=== PATIENT | female | born 1980 | race Caucasian/White ===

== ENCOUNTER 2024-01-18 03:29 | Emergency (ER) | payer OTHER, SELFPAY ==
[2024-01-18 03:36] VITALS: BP 180/114
--- NOTE | 2024-01-18 04:03 | ED.GENMED ---
History of Present Illness
General
Chief Complaint: Throat Problem
Source: patient
Exam Limitations: none
Time Seen by Provider: 01/18/24 03:35
Nursing documentation reviewed up to this point in time: agreed with
Travel History
Have you had any contact with someone who has COVID-19?: No
Do you have any symptoms of coronavirus? Fever > 100 degrees, chills, cough, shortness of breath, sore throat, loss of taste or smell, muscle aches, or headache?: No
History of Present Illness
History of Present Illness:
43-year-old female with no chronic medical issues presents to the emergency room for evaluation of sore throat. Patient reports symptoms started early this morning and they have been worsening throughout the day, tonight she feels her tonsils are
markedly swollen and so she came to the emergency room for assessment. She says she has had similar significant tonsillar swelling when she had mono in the past as a teenager. She denies any change in her voice. Denies any drooling. Denies any
trismus. She has not had a fever. She denies any cough. She does have some nasal congestion. She denies any other complaints. She admits that she is very anxious.
Review of Systems
Review of Systems
All Other Systems: ROS reviewed and negative except as documented in HPI and ROS
Constitutional: Denies fever or chills
EENT: Reports sore throat and runny nose
Respiratory: Denies cough or trouble breathing
Cardiac: Denies chest pain or palpitations
ABD/GI: Denies abdominal pain, nausea or vomiting
: Denies flank pain
Musculoskeletal: Denies neck pain or back pain
Neurological: Denies headache, weakness or numbness
Phy Exam
Physical Exam
Physical Exam:
General: Awake, alert, oriented x3; slightly anxious but no acute distress
Head: Normocephalic, atraumatic
Eyes: Conjunctiva normal, EOMI
Throat: Airway intact, handling secretions, no tongue elevation, no trismus; she has significant bilateral tonsillar enlargement�tonsils are kissing, erythema and exudate; left very slightly larger than right but uvula remains midline with no
deviation
Neck: Trachea midline, left-sided anterior cervical chain lymphadenopathy
Lungs: Breathing comfortably not in distress
Heart: Tachycardia with regular rhythm
Neuro: No gross deficits, ambulatory
Skin: no rash
Extremities: Warm and well-perfused
Scores
Heart Failure Risk
Heart Failure Risk Score: Not Applicable
Heart Score for Chest Pain Patients
STEMI patient?: Not applicable
Withdrawal Assessment of Alcohol
Withdrawal Assessment Completed?: Not applicable
Course
Orders/Labs/Results
Orders:
Orders
01/18/24 03:35
Rapid Strep Group A Urgent
[facility] Source: Throat/Pharynx
Specimen Description:
01/18/24 03:40
CT Neck With Iv Contrast Urgent
Comment:
Reason For Exam: marked tonsillar swelling, left>right
Dexamethasone Sod Phosphate [Decadron] 10 mg IV NOW STA
Ketorolac [Toradol] 15 mg IV NOW STA
01/18/24 03:42
0.9% Sodium Chloride 1000 ml [Nss] 1,000 ml IV BOLUS
01/18/24 04:14
Complete Blood Count/With Diff Urgent
Comprehensive Metabolic Panel Urgent
Influenza A+B Rapid Molecular Urgent
[facility]DRA Source: Nasal Swab
Specimen Description:
01/18/24 04:21
COVID-19 Antigen Urgent
Comment: RECOLLECT, ORIGINAL SAMPLE WAS COLLECTED WITH THE WRONG SWAB
Abnormal Lab Results
01/18/24
04:14
WBC 10.9 H 10^3/uL
(4.8-10.8)
Abs Immat Gran (auto) 0.1 H 10^3/uL
(0-0.05)
Absolute Neuts (auto) 8.9 H 10^3/uL
(1.4-6.5)
Neutrophils % 81.7 H %
(42.2-75.2)
Lymphocytes % 11.8 L %
(20.5-51.1)
01/18/24 04:14
Vital Signs
Initial and Last Documented VS:
Initial Vital Signs
Temp Pulse Resp Pulse Ox
36.7 C 143 20 97
01/18/24 03:31 01/18/24 03:31 01/18/24 03:31 01/18/24 03:31
Last Documented Vital Signs
Temp Pulse Resp BP Pulse Ox
36.7 C 143 20 180/114 97
01/18/24 03:31 01/18/24 03:31 01/18/24 03:31 01/18/24 03:36 01/18/24 03:31
MDM/Problems Addressed
Differential Diagnosis Includes:
Strep throat; viral infection including adenovirus, COVID, influenza; mononucleosis
MDM/Problems Addressed:
43-year-old female presents for evaluation of sore throat progressing throughout the day today and sensation of tonsillar swelling. Hypertensive and tachycardic in triage�she is quite anxious. Physical exam as above. She is protecting her airway.
She does have bilateral tonsillar enlargement, erythema, exudate. Midline uvula. Left tonsil was very slightly greater than right and she had left sided cervical chain adenopathy. Plan to check basic labs, viral swabs, strep swab. Will send for
a CT of the neck to rule out peritonsillar abscess. Will treat with Decadron and Toradol and provide some fluids. Reassess after the above.
Acute Exacerbation and/or Progression of Chronic Illness:
Acutely hypertensive
Acute Exacerbation and/or Progression of Chronic Illness: HTN
*Radiology
Radiology exam reviewed: radiology read reviewed
*Pulse Oximetry
Patient hypoxic: no
*Critical Care Note
Total Time (30-74mins, 75-104mins- exclusive of procedures): Not Applicable
Data Reviewed
Source: patient
ED Attending Note
-
Portions of this chart may have been created with voice recognition software.� Occasional wrong word or��sound alike� substitutions may have occurred due to the inherent limitations of voice recognition software.
Discharge Plan
Departure
Referrals:
Bette Foster MD [Family Provider] -
Interventions
Interventions:
*Risk Screen - Suicide Last Done: 01/18/24 03:31
*General Assessment Last Done: 01/18/24 03:31
*Neglect/Abuse Screening Last Done: 01/18/24 03:31
Discharge Date and Time
Print Language: CZECH
[2024-01-18] MEDS: DECADRON 10 MG IV (04:18)
[2024-01-18] MEDS: TORADOL 15 MG IV (04:18)
[2024-01-18] MEDS: NSS 1000 IV (04:19)
[2024-01-18 04:24] LABS: % Basophils 0.6 % (0-2); % Eosinophils 0.9 % (0-6); % Immature Granulocytes 0.5 % (0-0.5); % Lymphocytes 11.8 % (20.5-51.1); % Monocytes 4.5 % (1.7-9.3); % Neutrophils 81.7 % (42.2-75.2); Absolute Basophils 0.1 10^3/uL (0-0.2); Absolute Eosinophils 0.1 10^3/uL (0-0.7); Absolute Immature Granulocytes 0.1 10^3/uL (0-0.05); Absolute Lymphocytes 1.3 10^3/uL (1.2-3.4); Absolute Monocytes 0.5 10^3/uL (0.1-0.6); Absolute Neutrophils 8.9 10^3/uL (1.4-6.5); Hematocrit 38.1 % (37.0-47.0); Hemoglobin 13.2 g/dL (12.0-16.0); Mean Corp Hgb Conc. 34.6 g/dL (33.0-37.0); Mean Corpuscular Volume 83.7 fL (81.0-99.0); Mean Platelet Volume 10.3 fL (7.4-10.4); Nucleated Red Blood Cells % 0 %; Platelet Count 207 10^3/uL (130-400); Red Blood Cell Count 4.55 10^6/uL (4.20-5.40); Red Cell Dist. Width 12.5 % (11.5-14.5); White Blood Cell Count 10.9 10^3/uL (4.8-10.8)
[2024-01-18 04:39] LABS: ALT (SGPT) 24 U/L (0-35); AST (SGOT) 25 U/L (14-36); Albumin 4.3 g/dl (3.5-5.0); Alkaline Phosphatase 83 U/L (38-126); Blood Urea Nitrogen 23 mg/dl (7-17); Calcium 9.7 mg/dl (8.4-10.2); Carbon Dioxide 23 mmol/L (22-30); Chloride 107 mmol/L (98-107); Glucose 121 mg/dl (70-99); Potassium 3.9 mmol/L (3.5-5.1); Sodium 135 mmol/L (135-145); Total Bilirubin 0.7 mg/dl (0.2-1.3); Total Protein 6.8 g/dl (6.3-8.2); eGFR > 60.00
[2024-01-18 04:43] LABS: Monotest Negative (Negative)
[2024-01-18 06:09] LABS: COVID-19 Antigen Negative (Negative)
[2024-01-18] MEDS: CLEOCIN 300 MG PO (06:29)
[2024-01-18 06:46] VITALS: BP 133/88
== END 2024-01-18 06:48 | disposition home or self-care (01) ==
LOC: EMR 03:29
PROVIDERS: EMERGENCY PHYSICIAN Emergency Medicine; FAMILY PHYSICIAN Internal Medicine
DX: J02.0 Streptococcal pharyngitis (principal); R03.0 Elevated blood-pressure reading, without diagnosis of hypertension; Z11.52 Encounter for screening for COVID-19
CPT/HCPCS: 99285; 96374; 96375; 96361; 70491; 80053; 85025; 86308; 87070; 87502; 87811; 87880; Q9967

== ENCOUNTER → 2024-10-06 15:03 | Outpatient (REF) | payer OTHER, SELFPAY | LOC: WDC 15:03 | PROVIDERS: ATTENDING PHYSICIAN Nurse Practitioner | DX: Z12.31 Encounter for screening mammogram for malignant neoplasm of breast (principal) | CPT/HCPCS: 77063; 77067 ==

== ENCOUNTER → 2024-10-20 08:57 | Outpatient (REF) | payer OTHER, SELFPAY | LOC: RAD 08:57 | PROVIDERS: ATTENDING PHYSICIAN Obstetrics & Gynecology; FAMILY PHYSICIAN Internal Medicine | DX: N92.4 Excessive bleeding in the premenopausal period (principal) | CPT/HCPCS: 76830; 76856 ==

== ENCOUNTER → 2025-01-26 15:17 | Outpatient (REF) | payer OTHER, SELFPAY | LOC: RAD 15:17 | PROVIDERS: ATTENDING PHYSICIAN Obstetrics & Gynecology; FAMILY PHYSICIAN Nurse Practitioner | DX: N92.4 Excessive bleeding in the premenopausal period (principal) | CPT/HCPCS: 76830; 76856 ==